=== PATIENT | female | born 1975 | race Caucasian/White ===

== ENCOUNTER 2018-11-16 17:41 | Emergency (ER) | payer BC ==
[2018-11-16] MEDS ORDERED: ONDANSETRON HCL INJ/PF 4 MG/2 ML SDV IV ONE (18:55)
--- NOTE | 2018-11-16 18:58 | ER Document Report ---
ED Medical Screen (RME) - General Chief Complaint: Nausea/Vomiting/Diarrhea Stated Complaint: ABDOMINAL PAIN Time Seen by Provider: 11/16/18 18:50 Primary Care Provider: EDUAR FREEDMAN [Primary Care Provider] - Follow up as needed Information source: Patient TRAVEL OUTSIDE OF THE [place] IN LAST 30 DAYS: No - HPI Patient complains to provider of: ruq pain Notes: 11/16/18 18:56 Patient here with complaints of right upper quadrant/epigastric abdominal pain. The pain is been present for the last few weeks. Is gotten much worse and more constant over the last few days. She has associated nausea, vomiting, diarrhea. She also feels bloated. No fevers. No dysuria. She has donated a kidney, but denies any other abdominal surgeries. No chest pain or shortness of breath. Exam Patient is nontoxic, holding her right upper quadrant. She does appear to be uncomfortable. Lungs clear and equal throughout. Heart sounds normal. Tenderness to the epigastric and right upper quadrant on limited triage abdominal exam. No obvious lower abdominal tenderness on exam. Plan CBC, CMP, lipase, urine, urine , ultrasound of the right upper quadrant, chest x-ray, Zofran. Since the patient is a kidney donor, I am reluctant to give Toradol at this time without seeing her renal function. She states that she is feeling well enough to hold off on pain medications at this time. An initial examination was made on the patient as part of the triage process, and it was determined a more comprehensive evaluation was necessary. Initial labs were ordered and patient was transferred to another provider in the ED who assumed care and finished evaluation and plan. - Related Data Allergies/Adverse Reactions: promethazine [From Phenergan] Allergy (Severe, Verified 11/16/18 18:56) seizure Past Medical History - Social History Chew tobacco use (# tins/day): No Frequency of alcohol use: None Drug Abuse: None Renal/ Medical History: Denies: Hx Peritoneal Dialysis Past Surgical History: Reports: Hx Gynecologic Surgery - D & C, Hx Kidney (Renal Surgery) - Left kidney (donation 11/2013) Physical Exam - Vital signs Vitals: Temp Pulse Resp BP Pulse Ox 97.7 F 70 16 135/84 H 100 11/16/18 18:21 11/16/18 18:21 11/16/18 18:21 11/16/18 18:21 11/16/18 18:21 Course - Vital Signs Vital signs: Temp Pulse Resp BP Pulse Ox 97.7 F 70 16 135/84 H 100 11/16/18 18:21 11/16/18 18:21 11/16/18 18:21 11/16/18 18:21 11/16/18 18:21 Doctor's Discharge - Discharge Referrals: LOCALMD,NO [Primary Care Provider] - Follow up as needed
[2018-11-16 19:50] LABS: ABSOLUTE BASOPHILS # (AUTO) 0.1 10^3/uL (0.0-0.2); ABSOLUTE EOSINOPHILS # (AUTO) 0.1 10^3/uL (0.0-0.6); ABSOLUTE MONOCYTES (AUTO) 0.6 10^3/uL (0.1-1.4); ABSOLUTE NEUT (AUTO) 7.8 10^3/uL (1.7-8.2); EOSINOPHILS % (AUTO) 1.2 % (0-6); HEMATOCRIT 37.9 % (36.0-47.0); HEMOGLOBIN 12.9 g/dL (12.0-15.5); LYMPHOCYTES % (AUTO) 25.9 % (13-45); MEAN CORPUSCULAR HEMOGLOBIN 28.2 pg (27.0-33.4); MEAN CORPUSCULAR VOLUME 83 fl (80-97); MONOCYTES % (AUTO) 5.2 % (3-13); PLATELET COUNT 332 10^3/uL (150-450); RED BLOOD COUNT 4.58 10^6/uL (3.72-5.28); RED CELL DISTRIBUTION WIDTH 13.7 % (11.5-14.0); SEGMENTED NEUTROPHILS % (AUTO) 66.7 % (42-78); TOTAL CELLS COUNTED % (AUTO) 100 %; WHITE BLOOD COUNT 11.7 10^3/uL (4.0-10.5)
[2018-11-16 20:03] LABS: AMORPHOUS SEDIMENT,URINE TRACE /HPF; APPEARANCE,URINE SLIGHTLY-CLOUDY; BILIRUBIN,URINE NEGATIVE (NEGATIVE); COLOR,URINE YELLOW; GLUCOSE, URINE NEGATIVE (NEGATIVE); KETONES,URINE NEGATIVE (NEGATIVE); LEUKOCYTE ESTERASE,URINE TRACE (NEGATIVE); NITRITE,URINE NEGATIVE (NEGATIVE); PROTEIN,URINE NEGATIVE (NEGATIVE); URINE SPECIFIC GRAVITY 1.025; UROBILINOGEN,URINE NEGATIVE mg/dL (<2.0)
[2018-11-16 20:05] LABS: ALANINE AMINOTRANSFERASE 27 U/L (9-52); ALBUMIN 4.2 g/dL (3.5-5.0); ALKALINE PHOSPHATASE 72 U/L (38-126); ANION GAP 5 (5-19); ASPARTATE AMINO TRANSFERASE 21 U/L (14-36); BILIRUBIN,DIRECT 0.2 mg/dL (0.0-0.4); BILIRUBIN,TOTAL 0.3 mg/dL (0.2-1.3); BLOOD UREA NITROGEN 14 mg/dL (7-20); CARBON DIOXIDE 27 mmol/L (22-30); CHLORIDE 106 mmol/L (98-107); GLUCOSE 95 mg/dL (75-110); LIPASE 166.1 U/L (23-300); POTASSIUM 4.3 mmol/L (3.6-5.0); SODIUM 138.4 mmol/L (137-145); TOTAL PROTEIN 7.2 g/dL (6.3-8.2)
--- NOTE | 2018-11-16 22:06 | RADIOLOGY REPORT (SQ) ---
EXAM DESCRIPTION: US ABDOMEN LIMITED COMPLETED DATE/TME: 11/16/2018 18:56 CLINICAL HISTORY: 43 years, Female, ruq pain, n/v/d COMPARISON: None. TECHNIQUE: Transabdominal ultrasound was performed. LIMITATIONS: None. FINDINGS: Visualized portions of the pancreas are normal echogenicity. Visualized portions of the abdominal aorta appear normal with measurements as follows: Proximal abdominal aorta: 1.8 cm Mid abdominal aorta: 1.5 cm Distal abdominal aorta: 1.1 cm The liver appears overall normal echogenicity. It measures 16 cm in length. Antegrade flow is documented within the main portal vein. Gallbladder wall thickness measures 2 mm. Echogenic material is noted within the gallbladder lumen, indicating combination of sludge and/or stones. Common bile duct diameter measures 0.5 cm. Sonographic Rogers sign was negative. Right kidney measures 13.2 x 5.3 x 5.5 cm in size. No hydronephrosis. IMPRESSION: No acute sonographic abnormality. Echogenic material within the gallbladder lumen likely indicates a combination of sludge and/or stones. copyright 2010 [employer]- All Rights Reserved
[2018-11-16] MEDS ORDERED: FAMOTIDINE 20 MG TABLET PO ONE (23:33)
[2018-11-16] MEDS ORDERED: SUCRALFATE 1 GM TABLET PO ONE (23:33)
[2018-11-16] MEDS ORDERED: METOCLOPRAMIDE HCL ORAL SOLN 10 MG/10 ML UDCUP PO ONE (23:34)
[2018-11-16] MEDS ORDERED: LIDOCAINE 2% VISCOUS SOLN 20 ML UDCUP PO ONE (23:34)
[2018-11-16] MEDS ORDERED: MAG HYDROX/AL HYDROX/SIMETH SUSP 30 ML UDCUP PO ONE (23:34)
--- NOTE | 2018-11-16 23:55 | ER Document Report ---
ED General - General Chief Complaint: Nausea/Vomiting/Diarrhea Stated Complaint: ABDOMINAL PAIN Time Seen by Provider: 11/16/18 18:50 Primary Care Provider: EDUAR FREEDMAN [NO LOCAL MD] - Follow up as needed Notes: Patient is a 43-year-old female without chronic medical problems, has donated her right kidney her brother, denies any other abdominal surgical history, presents with 24 hours of upper abdominal pain, nausea, vomiting, bloating and belching. Describes the pain in her abdomen is being a throbbing, aching, burning discomfort. Eating and drinking worsens the discomfort. Nothing improves the pain. Has been taking omeprazole chronically for previous diagnosis of gastritis without any improvement. Denies any melena, hematochezia or hematemesis. Has not seen her primary care physician regarding today's concerns. Denies chest pain, shortness of breath, pain in the arms jaw or back. TRAVEL OUTSIDE OF THE [place] IN LAST 30 DAYS: No - HPI Onset: Yesterday Onset/Duration: Gradual Quality of pain: Burning, Pressure Severity: Moderate Pain Level: 3 Associated symptoms: Vomiting Exacerbated by: Food Relieved by: Denies Similar symptoms previously: Yes Recently seen / treated by doctor: No - Related Data Allergies/Adverse Reactions: promethazine [From Phenergan] Allergy (Severe, Verified 11/16/18 18:56) seizure Past Medical History - General Information source: Patient - Social History Smoking Status: Former Smoker Chew tobacco use (# tins/day): No Frequency of alcohol use: None Drug Abuse: None Lives with: Spouse/Significant other Family History: Reviewed & Not Pertinent Patient has suicidal ideation: No Patient has homicidal ideation: No Renal/ Medical History: Denies: Hx Peritoneal Dialysis Past Surgical History: Reports: Hx Gynecologic Surgery - D & C, Hx Kidney (Renal Surgery) - Left kidney (donation 11/2013) Review of Systems - Review of Systems Notes: Constitutional: Negative for fever. HENT: Negative for sore throat. Eyes: Negative for visual changes. Cardiovascular: Negative for chest pain. Respiratory: Negative for shortness of breath. Gastrointestinal: Positive for upper abdominal pain, nausea, vomiting Genitourinary: Negative for dysuria. Musculoskeletal: Negative for back pain. Skin: Negative for rash. Neurological: Negative for headaches, weakness or numbness. 10 point ROS negative except as marked above and in HPI. Physical Exam - Vital signs Vitals: Temp Pulse Resp BP Pulse Ox 97.7 F 70 16 135/84 H 100 11/16/18 18:21 11/16/18 18:21 11/16/18 18:21 11/16/18 18:21 11/16/18 18:21 Interpretation: Normal Notes: PHYSICAL EXAMINATION: GENERAL: Well-appearing, well-nourished and in no acute distress. HEAD: Atraumatic, normocephalic. EYES: Pupils equal round and reactive to light, extraocular movements intact, sclera anicteric, conjunctiva are normal. ENT: nares patent, oropharynx clear without exudates. Moist mucous membranes. NECK: Normal range of motion, supple without lymphadenopathy LUNGS: Breath sounds clear to auscultation bilaterally and equal. No wheezes rales or rhonchi. HEART: Regular rate and rhythm without murmurs ABDOMEN: Soft, nontender, normoactive bowel sounds. No guarding, no rebound. No masses appreciated. EXTREMITIES: Normal range of motion, no pitting or edema. No cyanosis. NEUROLOGICAL: No focal neurological deficits. Moves all extremities spontaneously and on command. PSYCH: Normal mood, normal affect. SKIN: Warm, Dry, normal turgor, no rashes or lesions noted. Course - Re-evaluation Re-evalutation: 11/16/18 23:56 Patient presents with epigastric abdominal pain with associated reflux symptoms most consistent with likely gastritis. Patient has no focal abdominal tenderness on examination. Right upper quadrant ultrasound does not demonstrate any evidence of acute cholecystitis or cholelithiasis. Lipase is normal. No LFT changes. Based on history and exam, I do not suspect ACS, pulmonary embolus, SBO, mesenteric ischemia, acute pancreatitis, biliary pathology, or an abdominal aortic dissection. Patient has had improvement of symptoms here with a GI cocktail. At this time will discharge with return precautions and follow-up recommendations. Verbal discharge instructions given a the bedside and opportunity for questions given. Medication warnings reviewed. Patient is in agreement with this plan and has verbalized understanding of return precautions and the need for primary care follow-up in the next 24-72 hours. - Vital Signs Vital signs: Temp Pulse Resp BP Pulse Ox 97.5 F 64 16 130/72 H 100 11/17/18 00:04 11/17/18 00:04 11/17/18 00:04 11/17/18 00:04 11/17/18 00:04 - Laboratory Result Diagrams: 11/16/18 19:28 11/16/18 19:28 Laboratory results interpreted by me: 11/16/18 11/16/18 19:28 19:28 WBC 11.7 H Urine Blood SMALL H Ur Leukocyte Esterase TRACE H - Diagnostic Test Radiology reviewed: Image reviewed, Reports reviewed Radiology results interpreted by me: 11/16/18 23:56 Chest x-ray: No acute infiltrate or pneumothorax Discharge - Discharge Clinical Impression: Upper abdominal pain, Gastritis/duodenitis Nausea and vomiting Qualifiers: Vomiting type: unspecified Vomiting Intractability: non-intractable Qualified Code(s): R11.2 - Nausea with vomiting, unspecified Condition: Good Disposition: HOME, SELF-CARE Additional Instructions: Your symptoms appear to be most consistent with stomach or upper intestinal irritation. Please begin taking famotidine 40 mg in the morning and 40 mg at night. Take Carafate prior to meals. You may also take medicine such as Pepto- Bismol or Tums to assist with your pain. Please return to emergency department immediately if you have worsening of your pain, shortness of breath, vomiting, become unable to exert yourself due to pain or difficulty breathing, you pass out, or have any pain that radiates into your arms, jaw, or back. Please also return if you have any additional symptoms that are concerning to you. As we have discussed, the most important thing is lifestyle changes. You need to avoid smoking, sodas, tea, coffee, alcohol, spicy foods, and acidic foods such as citrus fruits, tomato based products, berries, and most fruit juices. Prescriptions: Famotidine 40 mg PO BID #60 tablet Sucralfate [Carafate 1 gm Tablet] 1 gm PO ACHS #120 tablet Referrals: LOCALMD,NO [NO LOCAL MD] - Follow up as needed
[2018-11-17 00:06] VITALS: BP 130/72
--- NOTE | 2018-11-17 03:17 | RADIOLOGY REPORT (SQ) ---
EXAM DESCRIPTION: XR CHEST 1 VIEW COMPLETED DATE/TME: 11/16/2018 18:58 CLINICAL HISTORY: 43 years, Female, upper abdominal pain COMPARISON: None. NUMBER OF VIEWS: TECHNIQUE: LIMITATIONS: None. FINDINGS: It must be noted, that this patient's chest x-ray has been mislabeled, with the name, Carlos Manuel Velazquez. No evidence of pulmonary infiltrate or pleural effusion. The heart and mediastinum are unremarkable. Pulmonary vascularity appears normal. IMPRESSION: No acute finding. This patient's chest x-ray has been mislabeled, with the name,Carlos Manuel Velazquez. I have been informed that this error will be corrected later today. copyright 2010 [employer]- All Rights Reserved
== END 2018-11-17 00:06 | disposition home or self-care (01) ==
LOC: ER 17:41
DX: K29.90 Gastroduodenitis, unspecified, without bleeding (principal); Z79.899 Other long term (current) drug therapy; R10.13 Epigastric pain; R11.2 Nausea with vomiting, unspecified; R19.7 Diarrhea, unspecified; R14.2 Eructation; Z90.5 Acquired absence of kidney; Z88.8 Allergy status to other drugs, medicaments and biological substances; Z87.891 Personal history of nicotine dependence
CPT/HCPCS: 99284; 96374; 36415; 83690; 84703; 85025; 80053; 81001; 71045; 76705; J3490; J2405

== ENCOUNTER → 2019-09-21 | Outpatient (CLI) | payer BC ==
--- NOTE | 2019-09-21 12:44 | RADIOLOGY REPORT (SQ) ---
EXAM DESCRIPTION: SHOULDER LEFT 2 OR MORE VIEWS COMPLETED DATE/TIME: 09/21/2019 10:48 am REASON FOR STUDY: ACUTE PAIN OF LEFT SHOULDER M25.512 PAIN IN LEFT SHOULDER COMPARISON: None. NUMBER OF VIEWS: Three views. TECHNIQUE: Internal rotation, external rotation, and Y view images acquired of the left shoulder. LIMITATIONS: None. FINDINGS: MINERALIZATION: Normal. BONES: No acute fracture. No worrisome bone lesions. JOINTS: No dislocation. VISUALIZED LUNGS AND RIBS: No pneumothorax. No rib fracture. SOFT TISSUES: No radiopaque foreign body. OTHER: No other significant finding. IMPRESSION: NEGATIVE STUDY OF THE LEFT SHOULDER. NO RADIOGRAPHIC EVIDENCE OF ACUTE INJURY. TECHNICAL DOCUMENTATION: JOB ID: [id number] 2010 [employer]- All Rights Reserved Reading location - IP/workstation name: [email or web address]
== END ==
LOC: RAD 10:21
PROVIDERS: ATTEND Physician Assistant
DX: M25.512 Pain in left shoulder (principal)